=== PATIENT | female | born 1955 | race Caucasian/White ===

== ENCOUNTER 2019-09-14 15:42 | Outpatient (CLI) | payer MEDICARE, SELFPAY ==
--- NOTE | 2019-09-14 16:01 | XR_ITS ---
WS: [id number] SCREENING DEXA SCAN [employer] CLINICAL INFORMATION: POST MENOPAUSAL COMPARISON: None. FINDINGS: The L1-L4 bone mineral density measures 1.341 g/cm2. This corresponds to a T score score of 1.3 and Z score of 2.6. Left femoral neck bone mineral density measures 0.958 g/cm2. This corresponds to a T score of -0.4 an d Z score of 0.6. Right femoral neck bone mineral density measures 0.972 g/cm2. This corresponds to a T score -0.3of an d Z score of 0.7. Mean femoral neck bone mineral density measures 0.965 g/cm2. This corresponds to a T score of -0.3 an d Z score of 0.7. XR/XR DEXA axial skeleton* [id number] IMPRESSION: Normal bone mineralization. Patient's FRAX calculated 10 year probability for major osteoporotic fracture i s 8.6 % and osteoporotic hip fracture is 0.8%.
== END 2019-09-14 15:43 | disposition home or self-care (01) ==
LOC: RADWPI 15:51
PROVIDERS: Family Provider Nurse Practitioner Family; PCP Nurse Practitioner Family; Visit Provider Nurse Practitioner
DX: Z78.0 Asymptomatic menopausal state (principal)
CPT/HCPCS: 77080

== ENCOUNTER 2020-02-08 10:02 | Outpatient (CLI) | payer MEDICARE, SELFPAY ==
--- NOTE | 2020-02-08 10:12 | MM_ITS ---
WS: [id number] Bilateral screening digital mammogram, 02/08/2020 Clinical Data: SCREENING Comparison: 01/03/2019. Findings: The breast parenchymal pattern shows fat replacement. No spiculated masses or clustered calcification s are seen. There are no secondary signs of carcinoma. Bilateral nipple inversion is noted. MM/[place] [id number] Impression: 1. Negative bilateral mammogram unchanged. 2. Recommend annual screening mammograms. BIRADS: 1-Negative FOLLOW UP: 1 Year Follow-up The CAD tool checker was used.
== END 2020-02-08 10:03 | disposition home or self-care (01) ==
LOC: RADSHAW 10:05
PROVIDERS: PCP Nurse Practitioner; Visit Provider Nurse Practitioner
DX: Z12.31 Encounter for screening mammogram for malignant neoplasm of breast (principal)
CPT/HCPCS: 77067

== ENCOUNTER 2021-03-20 15:11 | Outpatient (CLI) | payer MEDICARE, SELFPAY ==
--- NOTE | 2021-03-20 15:17 | MM_ITS ---
WS: [id number] Bilateral screening digital mammogram, 03/20/2021 Clinical Data: SCREENING Comparison: 02/08/2020, 01/03/2019. Findings: The breast parenchymal pattern shows fat replacement. No spiculated masses or clustered calcification s are seen. There are no secondary signs of carcinoma. MM/[place] [id number] Impression: 1. Negative bilateral mammogram unchanged. 2. Recommend annual screening mammograms. BIRADS: 1-Negative FOLLOW UP: 1 Year Follow-up The CAD apparel stock checker was used.
== END 2021-03-20 15:12 | disposition home or self-care (01) ==
LOC: RADSHAW 15:15
PROVIDERS: PCP Nurse Practitioner; Visit Provider Nurse Practitioner
DX: Z12.31 Encounter for screening mammogram for malignant neoplasm of breast (principal)
CPT/HCPCS: 77067

== ENCOUNTER 2021-06-03 07:43 | Outpatient (CLI) | payer MEDICARE, SELFPAY ==
--- NOTE | 2021-06-03 07:56 | CT_ITS ---
WS: [id number] CT ABDOMEN AND PELVIS WITH CONTRAST HISTORY: LEFT ADRENAL ADENOMA TECHNIQUE: Imaging performed of the abdomen and pelvis with IV contrast. Single phase imaging of the abdomen. Coronal and sagittal reformats are submitted. All CT scans at [facility] use at [address] one of these dose optimization techniques: automated exposure control; mA and/or kV adjustment per patient size (includes targeted exams where dose is matched to clinical indication); or iterative re construction. IV CONTRAST: Visipaque 320; 95 mL IV. Oral contrast: Yes. DLP: 1057.15 mGy.cm COMPARISON: Ultrasound 01/08/2021 Lower thorax: Lung bases are clear. Heart is normal size. Moderate to large hiatal hernia. Liver/biliary system: Normal size with no intrahepatic dilatation. Gallbladder: Normal. No gallstones or wall thickening. No pericholecystic fluid. Pancreas: Normal size pancreas and pancreatic duct. No adjacent inflammation. Spleen: Atrophic small shrunken spleen. Dense calcification near the splenic hilum. The largest perip herally calcified mass measures 2.0 cm. These are probably small calcified splenic artery aneurysms. Adrenal glands: There is a very tiny low-attenuation nodule measuring 8 x 5 mm in the lateral limb of the RIGHT adrenal gland. There is also mild hyperplasia involving the LEFT adrenal gland but no disc rete mass. Right kidney: 2 cysts associated with the mid kidney. The largest measures 3.1 x 4.0 cm. No obstructi on. Left kidney: Large cyst from the upper pole measures 5.4 x 6.0 cm. No obstruction or solid mass. Aorta: Scattered atherosclerotic plaque. No aneurysm. Lymphadenopathy: None. Free fluid: None. GI tract: Prior appendectomy. Stomach is only moderately distended. No adjacent inflammation. No smal l bowel obstruction. Numerous diverticula in the descending and sigmoid colon. No acute diverticuliti s. Abdominal wall: Unremarkable abdominal wall. No hernia. Pelvis: Prior hysterectomy. Urinary bladder is well distended. No free fluid or adenopathy in the pel vis. Bones: Mild straightening of the normal lumbar lordosis. Disc spaces are narrowed. No fracture. CT/CT abdomen pelvis w con* [id number] IMPRESSION: 1. No acute abdominal or pelvic abnormalities. 2. Atrophic shrunken spleen may be from prior trauma or infarction. 3. 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 The largest measures 2.0 cm in diameter. 4. Bilateral renal cysts. 5. RIGHT adrenal nodule measures 8 x 5 mm. Mild hyperplasia LEFT adrenal gland . With no history of prior malignancy these are statistically likely benign. To o small to characterize further. 6. Moderate to large hiatal hernia.
[2021-06-03 09:46] LABS: Blood Urea Nitrogen 13 mg/dL (8-23); Glomerular Filtration Rate 55.1 mL/min (90-130)
[2021-06-03] MEDS: iodixanol 320 mg/mL 100mL Btl IV (10:02)
[2021-06-03] MEDS: iohexol 300 mg/mL 50 mL Btl PO (10:03)
== END 2021-06-03 07:44 | disposition home or self-care (01) ==
LOC: RAD 07:48
PROVIDERS: PCP Nurse Practitioner; Visit Provider Nurse Practitioner
DX: D35.02 Benign neoplasm of left adrenal gland (principal); Q61.02 Congenital multiple renal cysts; K44.9 Diaphragmatic hernia without obstruction or gangrene
CPT/HCPCS: 74177; 82565; 84520

== ENCOUNTER → 2023-01-29 10:20 | Outpatient (BNVA) | payer MEDICARE, SELFPAY | PROVIDERS: PCP Nurse Practitioner; Visit Provider Podiatrist Foot & Ankle Surgery | DX: M21.611 Bunion of right foot; M19.171 Post-traumatic osteoarthritis, right ankle and foot | CPT/HCPCS: 73630; 99203 ==

== ENCOUNTER 2023-02-05 11:24 | Outpatient (CLI) | payer MEDICARE, SELFPAY ==
--- NOTE | 2023-02-05 11:28 | MM_ITS ---
WS: [id number] BILATERAL 3D TOMOSYNTHESIS DIGITAL SCREENING MAMMOGRAPHY WITH CAD CLINICAL INFORMATION: SCREENING HISTORY: Screening mammogram. No current complaints. COMPARISON: 2020 TECHNIQUE: Bilateral CC and MLO views. FINDINGS: Scattered fibroglandular densities bilaterally. No suspicious focal mass, asymmetry, calcifications, or architectural distortion. No evidence of malignancy. Chronic inverted nipples stable IMPRESSION: MM/[place] [id number] BI-RADS: 2-Benign FOLLOW UP: 1 Year Follow-up Recommend return to annual screening mammography.
== END 2023-02-05 11:25 | disposition home or self-care (01) ==
LOC: RAD 11:25
PROVIDERS: PCP Nurse Practitioner; Visit Provider Nurse Practitioner Family
DX: Z12.31 Encounter for screening mammogram for malignant neoplasm of breast (principal)
CPT/HCPCS: 77063; 77067

== ENCOUNTER 2024-02-28 13:21 | Outpatient (CLI) | payer MEDICARE, SELFPAY ==
--- NOTE | 2024-02-28 13:26 | MM_ITS ---
WS: [id number] Bilateral screening 3D tomosynthesis digital mammogram, 02/28/2024 1:32 PM Clinical Data: SCREENING Comparison: 02/05/2023, 03/20/2021, 02/08/2020, 01/03/2019. Findings: No spiculated masses or clustered calcifications are seen. There are no secondary signs of carcinoma . MM/MM scr BI tomosynthesis [id number] Impression: Negative bilateral mammogram unchanged. Recommend annual screening mammograms. BIRADS: 1 - Negative. FOLLOW UP: 1 Year Follow-up DENSITY: There are scattered areas of fibroglandular density. The CAD cafeteria or lunchroom checker was used
--- NOTE | 2024-02-28 13:31 | XR_ITS ---
WS: [id number] DEXA (DUAL ENERGY X-RAY ABSORPTIOMETRY) Bone mineral density was performed using a [employer] machine. HISTORY: postmenopausal COMPARISON: 09/14/2019 Lumbar spine BMD (L1-L4): 1.345 g/cm2 T score: 1.4 Z score: 2.8 Total hip BMD: Left: 0.948 g/cm2. T score: -0.5 Z score: 0.8 Right: 0.953 g/cm2. T score: -0.4 Z score: 0.9 10 year probability of a major osteoporotic fracture is 9.4%. Compared to the prior study from 09/14/2019. Lumbar spine bone mineral density has increased by 0.3%. Bilateral hips bone mineral density has decreased by 1.6%. XR/XR DEXA axial skeleton* [id number] IMPRESSION: NORMAL BONE MINERAL DENSITY based upon the WHO classification for females. No significant change in bone mineral density within the lumbar spine or hips [place] the prior study.
== END 2024-02-28 13:22 | disposition home or self-care (01) ==
LOC: RAD 13:21
PROVIDERS: PCP Nurse Practitioner; Visit Provider Nurse Practitioner Family
DX: Z12.31 Encounter for screening mammogram for malignant neoplasm of breast (principal); Z13.820 Encounter for screening for osteoporosis; Z78.0 Asymptomatic menopausal state
CPT/HCPCS: 77063; 77067; 77080

== ENCOUNTER 2025-03-06 11:12 | Outpatient (CLI) | payer MEDICARE, SELFPAY ==
--- NOTE | 2025-03-06 11:18 | MM_ITS ---
WS: [id number] VIEWS: MLO and CC views both breasts. 3D digital tomosynthesis is also included in this exam. Comparison made with prior exam of 01/03/2019, 02/08/2020, 03/20/2021, 02/05/2023, 02/28/2024.. Findings: The breasts are almost entirely fatty. No sign of suspicious mass, tumor calcification or architectural distortion. MM/MM scr BI tomosynthesis [id number] Impression: BI-RADS: 1 - Negative. FOLLOW-UP: 1 Year Follow-up This mammogram was also analyzed by the Computer Aided Detection System [employer].
== END 2025-03-06 11:13 | disposition home or self-care (01) ==
LOC: RAD 11:12
PROVIDERS: PCP Nurse Practitioner; Visit Provider Nurse Practitioner Family
DX: Z12.31 Encounter for screening mammogram for malignant neoplasm of breast (principal); R92.313 Mammographic fatty tissue density, bilateral breasts
CPT/HCPCS: 77063; 77067